=== PATIENT | female | born 1990 | race Caucasian/White ===

== ENCOUNTER 2023-01-11 15:57 | Emergency (ER) | payer OTHER ==
[2023-01-11] MEDS ORDERED: Ketorolac Tromethamine 60 MG/2 ML VIAL ONE (16:24)
[2023-01-11] MEDS ORDERED: Orphenadrine Citrate 60 MG/2 ML VIAL ONE (16:24)
== END 2023-01-11 17:08 | disposition home or self-care (01) ==
LOC: MADERS 15:57
DX: M25.561 Pain in right knee (principal); K21.9 Gastro-esophageal reflux disease without esophagitis; F17.200 Nicotine dependence, unspecified, uncomplicated; K58.9 Irritable bowel syndrome, unspecified; X50.1XXA Overexertion from prolonged static or awkward postures, initial encounter; Y93.39 Activity, other involving climbing, rappelling and jumping off; Z79.899 Other long term (current) drug therapy
CPT/HCPCS: 96372; J1885; J2360